=== PATIENT | female | born 1995 | race Caucasian/White ===

== ENCOUNTER 2021-08-18 23:39 | Inpatient (IN) ==
[2021-08-19] MEDS ORDERED: LACTATED RINGERS 1,000 ML IV PRN (00:02)
[2021-08-19] MEDS ORDERED: ONDANSETRON 4 MG/2 ML VIAL IV PRN ×2 (00:02→12:31)
[2021-08-19] MEDS ORDERED: MEPERIDINE 50 MG/1 ML VIAL IV PRN (00:02)
[2021-08-19 00:37] LABS: Basophils % 0.2 % (0.0-0.8); Eosinophils % 0.6 % (0.00-10.9); Hemoglobin 9.3 GM/DL (12.0-16.0); Immature Granulocytes % 0.6 %; Immature Granulocytes Absolute 0.04 #; Lymphocytes # 1.7 10*3/uL (1.4-4.0); Lymphocytes % 25.7 % (21.3-54.2); Mean Corpuscular Volume 80.2 FL (87-102); Monocytes % 8.3 % (1.7-12.7); Neutrophils % 64.6 % (38.7-73.9); Platelet Count 210 T/CUMM (130-400); Red Blood Count 3.74 MC/CUMM (3.8-5.5); White Blood Count 6.5 T/CUMM (4-12)
[2021-08-19 00:54] LABS: Alanine Aminotransferase 11 U/L (13-56); Albumin 2.3 G/DL (3.4-5.0); Alkaline Phosphatase 144 U/L (45-117); Aspartate Amino Transferase 20 U/L (0-37); Bilirubin,Total < 0.39 MG/DL (0.20-1.00); Blood Urea Nitrogen 11 MG/DL (7-18); Carbon Dioxide 24 MMOL/L (21-32); Estimated Glom Filtration Rate 73 ML/MIN; Glucose 84 MG/DL (74-106); Osmolality,Calculated 274.5 MOS/KG (273-304); Potassium 4.1 MMOL/L (3.5-5.1); Sodium 139 MMOL/L (136-145); Total Protein 6.3 G/DL (6.4-8.2)
[2021-08-19] MEDS ORDERED: OXYTOCIN/LR 30 UNIT/1,000 ML BAG IV PRN (00:55)
[2021-08-19 01:23] LABS: INR 0.9; PT Patient Result 10.3 SECS (10.5-12.0); Partial Thromboplastin Time 26.2 SECS (23.8-32.1)
[2021-08-19 02:45] LABS: HIV Antigen/Antibody Result Nonreactive (Nonreactive); Hepatitis B Surface Ag Quant < 0.10 Index; Hepatitis B Surface Ag Result Non-Reactive (NonReactive)
[2021-08-19] MEDS: BUTORPHANOL 2 MG/ML VIAL IV PRN ×2 (04:04→07:24)
[2021-08-19] MEDS ORDERED: diphenhydrAMINE 50 MG/1 ML VIAL IV PRN ×2 (07:29)
[2021-08-19] MEDS ORDERED: FAMOTIDINE 20 MG/2 ML VIAL IV ONE (07:29)
[2021-08-19] MEDS ORDERED: ePHEDrine 50 MG/ML VIAL IV PRN (07:29)
[2021-08-19] MEDS ORDERED: NALOXONE 0.4 MG/ML VIAL IV PRN (07:29)
[2021-08-19] MEDS ORDERED: LACTATED RINGERS 1,000 ML IV ONE (07:29)
[2021-08-19] MEDS ORDERED: PROMETHAZINE 25 MG/1 ML VIAL IM ONE (07:29)
[2021-08-19] MEDS ORDERED: CITRIC ACID/SODIUM CITRATE 30 ML UDCUP PO ONE (07:29)
[2021-08-19] MEDS ORDERED: hydrOXYzine HCL 25 MG/1 ML VIAL IM PRN (07:29)
[2021-08-19] MEDS ORDERED: fentaNYL 2 MCG/ROPIV 0.2% EPID 100 ML EPIDURAL SCH (07:30)
[2021-08-19] MEDS ORDERED: OXYTOCIN/LR 20 UNIT/1,000 ML BAG IV SCH (08:30)
[2021-08-19] MEDS ORDERED: LABETALOL 100 MG TABLET PO SCH (09:00)
[2021-08-19] MEDS ORDERED: METHYLERGONOVINE 0.2 MG/1 ML AMP ONE (11:24)
[2021-08-19] MEDS ORDERED: CARBOPROST TROMETHAMINE 250 MCG/ML AMP IM ONE (11:24)
[2021-08-19] MEDS ORDERED: miSOPROStoL 200 MCG TABLET ONE (11:24)
[2021-08-19 11:38] LABS: Bacteria,Urine Occasional /HPF (Few); Bilirubin,Urine Negative (Negative); Blood, Urine Small mg/dL (Negative); Glucose,Urine (UA) Negative (Negative); Ketones,Urine Negative (Negative); Mucus,Urine Occasional /LPF (Occasional); Nitrite,Urine Positive (Negative); Protein,Urine 100 MG/DL; RBC,Urine 31 /HPF (0-4); Squamous Epithelial Cell,Urine Occasional /HPF (0-10); Urine Appearance CLEAR (Clear); Urine Color Yellow (Yellow); Urine Specific Gravity 1.009 (1.001-1.035); Urine Urobilinogen < 2.0 EU/DL (0.2-1.0)
[2021-08-19 12:19] LABS: Cord Venous Blood HCO3 18.2 MMOL/L; Cord Venous Blood PCO2 55.6 MMHG; Cord Venous Blood PO2 25.2
[2021-08-19] MEDS ORDERED: HYDROCORTISONE 2.5% RECTAL CREAM 30 GM TUBE TOP PRN (12:31)
[2021-08-19] MEDS ORDERED: BISACODYL 10 MG SUPP RECTAL PRN (12:31)
[2021-08-19] MEDS ORDERED: BENZOCAINE 20%/MENTHOL 0.5% SPRAY 56 GM CAN TOP PRN (12:31)
[2021-08-19] MEDS ORDERED: MEASLES/MUMPS/RUBELLA VACCINE 0.5 ML VIAL SUBCUT ONE (12:31)
[2021-08-19] MEDS ORDERED: RHO(D) IMMUNE GLOBULIN 300 MCG SYRINGE IM ONE (12:31)
[2021-08-19] MEDS ORDERED: DIPH/TET/ACEL PERT BOOSTER VACCINE 0.5 ML VIAL IM ONE (12:31)
[2021-08-19] MEDS ORDERED: oxyCODONE/ACETAMINOPHEN 5-325 MG TABLET PO PRN (12:31)
[2021-08-19] MEDS ORDERED: ACETAMINOPHEN 325 MG TABLET PO PRN (12:31)
[2021-08-19] MEDS ORDERED: WITCH HAZEL PADS 100/JAR TOP PRN (12:31)
[2021-08-19] MEDS ORDERED: LANOLIN 50% CREAM 0.3 OZ TUBE TOP PRN (12:31)
[2021-08-19] MEDS ORDERED: OXYTOCIN/LR 20 UNIT/1,000 ML BAG IV ONE (12:31)
[2021-08-19] MEDS ORDERED: NIFEdipine 10 MG CAPSULE PO ONE (16:15)
[2021-08-19] MEDS: IBUPROFEN 800 MG TABLET PO PRN (17:05)
[2021-08-19] MEDS: oxyCODONE/ACETAMINOPHEN 5-325 MG TABLET PO PRN (18:39)
[2021-08-19] MEDS: DOCUSATE SODIUM 100 MG CAPSULE PO SCH (20:26)
[2021-08-19] MEDS: FERROUS SULFATE 325 MG TABLET PO SCH (22:09)
[2021-08-20] MEDS ORDERED: ONDANSETRON 4 MG/2 ML VIAL IV PRN (04:28)
[2021-08-20 05:45] LABS: Basophils % 0.1 % (0.0-0.8); Eosinophils # 0.1 10*3/uL (0.0-0.87); Eosinophils % 1.2 % (0.00-10.9); Hematocrit 27.2 VOL% (35.7-47.0); Hemoglobin 8.3 GM/DL (12.0-16.0); Immature Granulocytes % 0.4 %; Immature Granulocytes Absolute 0.03 #; Lymphocytes # 1.9 10*3/uL (1.4-4.0); Lymphocytes % 22.7 % (21.3-54.2); Mean Corpuscular HGB Conc 30.5 GM/DL (32-36); Mean Corpuscular Volume 81.2 FL (87-102); Mean Platelet Volume 11.7 FL (9.6-12.0); Monocytes % 5.9 % (1.7-12.7); Neutrophils % 69.7 % (38.7-73.9); Platelet Count 192 T/CUMM (130-400); Red Blood Count 3.35 MC/CUMM (3.8-5.5); Red Cell Distribution Width 14.4 % (9.3-17.3); White Blood Count 8.4 T/CUMM (4-12)
[2021-08-20 06:05] LABS: Hypochromasia Slight; Microcytosis Slight; Platelet Estimate Normal
[2021-08-20] MEDS: FERROUS SULFATE 325 MG TABLET PO SCH ×2 (09:07→20:03)
[2021-08-20] MEDS: DOCUSATE SODIUM 100 MG CAPSULE PO SCH ×2 (09:08→20:03)
[2021-08-20] MEDS: IBUPROFEN 800 MG TABLET PO PRN ×2 (12:12→23:22)
[2021-08-20] MEDS: oxyCODONE/ACETAMINOPHEN 5-325 MG TABLET PO PRN ×2 (13:08→23:22)
[2021-08-21 09:12] VITALS: BP 136/92
[2021-08-21] MEDS: FERROUS SULFATE 325 MG TABLET PO SCH (09:23)
[2021-08-21] MEDS: DOCUSATE SODIUM 100 MG CAPSULE PO SCH (09:23)
== END 2021-08-21 12:23 | disposition home or self-care (01) | DRG 807 ==
LOC: N.LD 23:39 → N.OB 08-19 20:05
PROVIDERS: ADMIT Obstetrics & Gynecology; ATTEND Obstetrics & Gynecology